=== PATIENT | female | born 1985 | race Two or more races ===

== ENCOUNTER 2017-11-04 11:44 | Emergency (ER) | payer OTHER ==
[~2017-11-04] VITALS: Ht 175.3 cm; Wt 82.7 kg
[~2017-11-04 11:44] MED LIST: ACET325T26 PO; CIPR500T3 PO; DIPH25CA61 PO; ETON68IM3 IMPLANT; HYDR-882 PO; LEVO120C PO; PANT40TA5 PO; PROM25SU34 RC
[2017-11-04 12:29] LABS: MICROSCOPIC NOT IND
[2017-11-04 12:33] LABS: CULTURE INDICATED? NO
[2017-11-04] MEDS ORDERED: DIPHENHYDRAMINE 50 MG/ML, 1ML IVPush ONE (13:00)
[2017-11-04] MEDS ORDERED: SODIUM CHLORIDE 0.9% 1,000ML IVBOLUS ONE (13:00)
[2017-11-04] MEDS ORDERED: METOCLOPRAMIDE 5 MG/ML, 2ML IVPush ONE (13:00)
[2017-11-04] MEDS ORDERED: SODIUM CHLORIDE FLUSH 10ML SYR IVF ONE (13:00)
[2017-11-04 13:07] LABS: BASOPHILS # (AUTO) 0.01 x10^3/uL (0-0.1); BASOPHILS % (AUTO) 0 % (0-1); EOSINOPHILS # (AUTO) 0.01 x10^3/uL (0-0.4); EOSINOPHILS % (AUTO) 0 % (1-7); LYMPHOCYTES # (AUTO) 1.84 x10^3/uL (1-3.4); LYMPHOCYTES % (AUTO) 28 % (22-44); MD NO; MEAN CORPUSCULAR HEMOGLOBIN 29.5 pg (27.0-34.8); MEAN CORPUSCULAR HGB CONC 33.8 g/dL (32.4-35.8); MEAN CORPUSCULAR VOLUME 87.1 fL (80-100); MEAN PLATELET VOLUME 8.8 fL (7.4-10.4); MONOCYTES # (AUTO) 0.41 x10^3/uL (0.2-0.8); MONOCYTES % (AUTO) 6 % (2-9); NEUTROPHILS # (AUTO) 4.23 x10^3/uL (1.8-6.8); NEUTROPHILS % (AUTO) 65 % (42-75); PLATELET COUNT 235 x10^3/uL (130-400); RED BLOOD COUNT 4.17 x10^6/uL (3.82-5.3); RED CELL DISTRIBUTION WIDTH 13.4 % (9.6-15.2)
[2017-11-04] MEDS ORDERED: DIPHENHYDRAMINE 50 MG/ML, 1ML ONE (13:11)
[2017-11-04] MEDS ORDERED: METOCLOPRAMIDE 5 MG/ML, 2ML ONE (13:11)
[2017-11-04 13:20] LABS: ALANINE AMINOTRANSFERASE 17 U/L (12-78); ALBUMIN 3.5 g/dL (3.4-5.0); ANION GAP 7 mmol/L (5-15); CALCIUM 8.5 mg/dL (8.5-10.1); CHLORIDE 109 mmol/L (98-107); CREATININE 0.59 mg/dL (0.55-1.02)
[2017-11-04 13:22] LABS: ALKALINE PHOSPHATASE 65 U/L (45-117); BILIRUBIN,TOTAL 0.2 mg/dL (0.2-1.0); TOTAL PROTEIN 6.7 g/dL (6.4-8.2)
[2017-11-04 13:41] VITALS: BP 103/61
== END 2017-11-04 13:59 | disposition home or self-care (01) ==
LOC: ED 13:20
DX: O26.891 Other specified pregnancy related conditions, first trimester (principal); O99.351 Diseases of the nervous system complicating pregnancy, first trimester; R55 Syncope and collapse; R11.0 Nausea; Z3A.01 Less than 8 weeks gestation of pregnancy
CPT/HCPCS: 36415; 80053; 81003; 83690; 85025; 93005; 96361; 96374; 96375; 99285; J1200; J2765; J7030

== ENCOUNTER 2018-01-19 11:03 | Emergency (ER) | payer OTHER ==
[~2018-01-19] VITALS: Ht 175.3 cm; Wt 87.0 kg
[2018-01-19 11:08] VITALS: BP 115/73
[2018-01-19 12:30] LABS: BASOPHILS # (AUTO) 0.02 x10^3/uL (0-0.1); BASOPHILS % (AUTO) 0 % (0-1); EOSINOPHILS # (AUTO) 0.01 x10^3/uL (0-0.4); EOSINOPHILS % (AUTO) 0 % (1-7); LYMPHOCYTES # (AUTO) 1.72 x10^3/uL (1-3.4); LYMPHOCYTES % (AUTO) 23 % (22-44); MD NO; MEAN CORPUSCULAR HEMOGLOBIN 30.3 pg (27.0-34.8); MEAN CORPUSCULAR HGB CONC 34.4 g/dL (32.4-35.8); MEAN CORPUSCULAR VOLUME 88.1 fL (80-100); MEAN PLATELET VOLUME 8.2 fL (7.4-10.4); MONOCYTES # (AUTO) 0.39 x10^3/uL (0.2-0.8); MONOCYTES % (AUTO) 5 % (2-9); NEUTROPHILS # (AUTO) 5.24 x10^3/uL (1.8-6.8); NEUTROPHILS % (AUTO) 71 % (42-75); PLATELET COUNT 237 x10^3/uL (130-400)
[2018-01-19 12:40] LABS: ALANINE AMINOTRANSFERASE 17 U/L (12-78); ALBUMIN 3.2 g/dL (3.4-5.0); ANION GAP 8 mmol/L (5-15); CALCIUM 9.5 mg/dL (8.5-10.1); CHLORIDE 108 mmol/L (98-107); CREATININE 0.48 mg/dL (0.55-1.02)
[2018-01-19 12:42] LABS: ALKALINE PHOSPHATASE 80 U/L (45-117); BILIRUBIN,TOTAL 0.2 mg/dL (0.2-1.0); TOTAL PROTEIN 7.3 g/dL (6.4-8.2)
[2018-01-19 12:52] LABS: CULTURE INDICATED? YES; MICROSCOPIC INDICATED
== END 2018-01-19 14:10 | disposition home or self-care (01) ==
LOC: ED 14:00
DX: O26.892 Other specified pregnancy related conditions, second trimester (principal); R55 Syncope and collapse; R20.2 Paresthesia of skin; Z3A.18 18 weeks gestation of pregnancy
CPT/HCPCS: 36415; 80053; 81001; 85025; 87086; 93005; 99285

== ENCOUNTER → 2018-03-05 | Outpatient (CLI) | payer OTHER ==
[~2018-03-05] VITALS: Ht 175.3 cm; Wt 89.9 kg
[2018-03-05 17:10] VITALS: BP 109/64
[2018-03-05 17:17] LABS: MICROSCOPIC AUTO
== END | disposition home or self-care (01) ==
LOC: LDOP 16:28
PROVIDERS: ATTEND Obstetrics & Gynecology
DX: O26.892 Other specified pregnancy related conditions, second trimester (principal); M54.9 Dorsalgia, unspecified; Z3A.24 24 weeks gestation of pregnancy
CPT/HCPCS: 59025; 81001; 87086; 99201; G0463

== ENCOUNTER 2018-03-16 09:18 | Outpatient (CLI) | payer OTHER ==
[2018-03-16] MEDS ORDERED: PREN1TAB10 PO (10:52)
[2018-03-16] MEDS ORDERED: CALC1TAB84 PO (10:56)
== END 2018-03-16 11:11 | disposition home or self-care (01) ==
LOC: LDOP 09:18
PROVIDERS: ATTEND Obstetrics & Gynecology
DX: O26.899 Other specified pregnancy related conditions, unspecified trimester (principal); R42 Dizziness and giddiness; H57.10 Ocular pain, unspecified eye; Z3A.00 Weeks of gestation of pregnancy not specified
CPT/HCPCS: 59025; 99211; G0463

== ENCOUNTER 2018-03-16 11:14 | Emergency (ER) | payer OTHER ==
[~2018-03-16] VITALS: Ht 175.3 cm; Wt 93.9 kg
[~2018-03-16 11:14] MED LIST changes: +CALC1TAB84 PO; +PREN1TAB10 PO
[2018-03-16 11:55] LABS: BASOPHILS # (AUTO) 0.01 x10^3/uL (0-0.1); BASOPHILS % (AUTO) 0 % (0-1); EOSINOPHILS # (AUTO) 0.03 x10^3/uL (0-0.4); EOSINOPHILS % (AUTO) 0 % (1-7); LYMPHOCYTES % (AUTO) 18 % (22-44); MD NO; MEAN CORPUSCULAR HEMOGLOBIN 29.9 pg (27.0-34.8); MEAN PLATELET VOLUME 7.7 fL (7.4-10.4); MONOCYTES # (AUTO) 0.43 x10^3/uL (0.2-0.8); MONOCYTES % (AUTO) 5 % (2-9); NEUTROPHILS # (AUTO) 6.62 x10^3/uL (1.8-6.8); NEUTROPHILS % (AUTO) 76 % (42-75); PLATELET COUNT 225 x10^3/uL (130-400); RED BLOOD COUNT 4.27 x10^6/uL (3.82-5.3)
[2018-03-16 12:04] LABS: ALANINE AMINOTRANSFERASE 18 U/L (12-78); ALBUMIN 3.2 g/dL (3.4-5.0); ANION GAP 8 mmol/L (5-15); CALCIUM 8.5 mg/dL (8.5-10.1); CHLORIDE 107 mmol/L (98-107); CREATININE 0.47 mg/dL (0.55-1.02)
[2018-03-16 12:06] LABS: MICROSCOPIC NOT IND
[2018-03-16 12:07] LABS: ALKALINE PHOSPHATASE 85 U/L (45-117); BILIRUBIN,TOTAL 0.2 mg/dL (0.2-1.0); TOTAL PROTEIN 7.3 g/dL (6.4-8.2)
[2018-03-16 12:23] LABS: CULTURE INDICATED? NO
[2018-03-16 12:28] VITALS: BP 110/75
== END 2018-03-16 13:48 | disposition home or self-care (01) ==
LOC: ED 12:20
DX: O26.891 Other specified pregnancy related conditions, first trimester (principal); J01.90 Acute sinusitis, unspecified; M79.7 Fibromyalgia; Z3A.26 26 weeks gestation of pregnancy
CPT/HCPCS: 36415; 70551; 80053; 81003; 85025; 99285

== ENCOUNTER 2018-04-13 13:59 | Outpatient (CLI) | payer OTHER ==
[~2018-04-13] VITALS: Ht 175.3 cm; Wt 95.4 kg
[2018-04-13 14:10] VITALS: BP 95/55
[2018-04-13 14:24] LABS: CULTURE INDICATED? NO; MICROSCOPIC NOT IND
[2018-04-13] MEDS ORDERED: D5%-LACTATED RINGERS 1,000 ML IV SCH (15:00)
== END 2018-04-13 15:45 | disposition home or self-care (01) ==
LOC: LDOP 13:59
PROVIDERS: ATTEND Obstetrics & Gynecology
DX: O26.893 Other specified pregnancy related conditions, third trimester (principal); R10.9 Unspecified abdominal pain; R11.0 Nausea; Z3A.30 30 weeks gestation of pregnancy
CPT/HCPCS: 59025; 81003; 96360; 99211; J7121; G0463

== ENCOUNTER 2018-05-07 09:09 | Outpatient (CLI) | payer OTHER ==
[~2018-05-07] VITALS: Ht 175.3 cm; Wt 95.9 kg
[2018-05-07 10:01] LABS: MICROSCOPIC INDICATED
[2018-05-07 10:33] VITALS: BP 112/65
== END 2018-05-07 11:48 | disposition home or self-care (01) ==
LOC: LDOP 09:09
PROVIDERS: ATTEND Obstetrics & Gynecology
DX: O26.893 Other specified pregnancy related conditions, third trimester (principal); Z3A.33 33 weeks gestation of pregnancy
CPT/HCPCS: 59025; 81001; 84112; 87086; 99211; G0463

== ENCOUNTER 2018-06-04 21:52 | Outpatient (CLI) | payer OTHER ==
[~2018-06-04] VITALS: Ht 175.3 cm; Wt 100.0 kg
[2018-06-04 21:55] VITALS: BP 129/75
[2018-06-04] MEDS ORDERED: MEPERIDINE/PF 50 MG/ML ONE (22:16)
[2018-06-04] MEDS ORDERED: PROMETHAZINE 25 MG/ML, 1ML ONE (22:16)
[2018-06-04] MEDS ORDERED: PROMETHAZINE 25 MG/ML, 1ML IM PRN (22:30)
[2018-06-04] MEDS ORDERED: MEPERIDINE/PF 50 MG/ML IVPush PRN (22:30)
== END 2018-06-04 22:30 | disposition home or self-care (01) ==
LOC: LDOP 21:52
PROVIDERS: ATTEND Obstetrics & Gynecology
DX: O26.893 Other specified pregnancy related conditions, third trimester (principal); M54.9 Dorsalgia, unspecified; Z3A.37 37 weeks gestation of pregnancy
CPT/HCPCS: 59025; 96372; 99211; J2175; J2550; G0463

== ENCOUNTER 2018-06-21 07:42 | Inpatient (IN) | payer OTHER ==
[~2018-06-21] VITALS: Ht 175.3 cm; Wt 102.3 kg
[2018-06-24] MEDS ORDERED: D5%-LACTATED RINGERS 1,000 ML IV SCH (20:32)
[2018-06-24] MEDS ORDERED: OXYTOCIN 30U/ 0.9% NaCL 500ML 500 ML IV PRN (20:32)
[2018-06-24] MEDS ORDERED: OXYTOCIN 30U/ 0.9% NaCL 500ML 500 ML IV ONE (20:32)
[2018-06-24 20:44] VITALS: BP 133/83
[2018-06-24] MEDS ORDERED: PLEASE ENTER HEIGHT AND WEIGHT MC SCH (20:46)
[2018-06-24] MEDS ORDERED: NEWBORN KIT ONE (20:52)
[2018-06-24 20:55] LABS: BASOPHILS # (AUTO) 0.02 x10^3/uL (0-0.1); BASOPHILS % (AUTO) 0 % (0-1); EOSINOPHILS # (AUTO) 0.02 x10^3/uL (0-0.4); EOSINOPHILS % (AUTO) 0 % (1-7); LYMPHOCYTES # (AUTO) 1.82 x10^3/uL (1-3.4); LYMPHOCYTES % (AUTO) 24 % (22-44); MD NO; MEAN CORPUSCULAR HEMOGLOBIN 27.1 pg (27.0-34.8); MEAN CORPUSCULAR HGB CONC 33.5 g/dL (32.4-35.8); MEAN CORPUSCULAR VOLUME 80.9 fL (80-100); MEAN PLATELET VOLUME 9.1 fL (7.4-10.4); MONOCYTES # (AUTO) 0.61 x10^3/uL (0.2-0.8); MONOCYTES % (AUTO) 8 % (2-9); NEUTROPHILS # (AUTO) 5.16 x10^3/uL (1.8-6.8); NEUTROPHILS % (AUTO) 68 % (42-75); PLATELET COUNT 227 x10^3/uL (130-400); RED BLOOD COUNT 3.96 x10^6/uL (3.82-5.3); RED CELL DISTRIBUTION WIDTH 13.3 % (9.6-15.2)
[2018-06-24] MEDS ORDERED: MISOPROSTOL 25 MCG TABLET ONE ×2 (20:56)
[2018-06-24] MEDS ORDERED: FENTANYL PF 100 MCG/2ML IV PRN (21:00)
[2018-06-24] MEDS ORDERED: SODIUM CITRATE/CITRIC ACID 30 ML UDC PO PRN (21:00)
[2018-06-24] MEDS ORDERED: METOCLOPRAMIDE 5 MG/ML, 2ML IVPush PRN (21:00)
[2018-06-24] MEDS ORDERED: ONDANSETRON 2MG/ML, 2ML IVPush PRN (21:00)
[2018-06-24] MEDS ORDERED: VANCOMYCIN PMX 1GM/200ML 200 ML IVPB SCH (21:00)
[2018-06-24] MEDS ORDERED: TERBUTALINE 1 MG/ML, 1ML IVPush PRN ×2 (21:00)
[2018-06-24] MEDS ORDERED: CALCIUM CARBONATE 500 MG TAB.CHEW PO PRN (21:00)
[2018-06-24] MEDS ORDERED: FENTANYL PF 100 MCG/2ML IVPush PRN (21:00)
[2018-06-24] MEDS ORDERED: ALUMINUM/MAG/SIMETHICONE 30 ML UDC PO PRN (21:00)
[2018-06-24] MEDS ORDERED: TERBUTALINE 1 MG/ML, 1ML SQ PRN (21:00)
[2018-06-24] MEDS: MISOPROSTOL 25 MCG TABLET VG PRN (21:10)
[2018-06-24] MEDS ORDERED: DIPHENHYDRAMINE 50 MG/ML, 1ML ONE (22:43)
[2018-06-24] MEDS ORDERED: DIPHENHYDRAMINE 50 MG/ML, 1ML IVPush ONE (23:00)
[2018-06-25] MEDS ORDERED: MISOPROSTOL 25 MCG TABLET ONE (03:48)
[2018-06-25] MEDS: MISOPROSTOL 25 MCG TABLET VG PRN (04:10)
[2018-06-25] MEDS ORDERED: ACETAMINOPHEN 325 MG TABLET ONE ×4 (05:03→20:22)
[2018-06-25] MEDS: ACETAMINOPHEN 325 MG TABLET PO PRN ×4 (05:05→20:25)
[2018-06-25] MEDS ORDERED: FENTANYL/BUPIV./NS/PF 250 ML EPIDCONT SCH (06:49)
[2018-06-25] MEDS ORDERED: FENTANYL PF 500 MCG, BUPIVACAINE/PF 0.5%, 30ML 62.5 ML in SODIUM CHLORIDE 0.9% 177.5 ML EPIDCONT SCH (07:00)
[2018-06-25] MEDS: LACTATED RINGERS 1,000 ML IV SCH ×2 (09:41→14:17)
[2018-06-25] MEDS ORDERED: OXYTOCIN 30U/ 0.9% NaCL 500ML 500 ML ONE (10:17)
[2018-06-25] MEDS ORDERED: FENTANYL PF 100 MCG/2ML ONE ×2 (12:10→13:46)
[2018-06-25] MEDS ORDERED: CEFAZOLIN PMX 2GM/50ML 50 ML IV SCH (13:30)
[2018-06-25] MEDS: CEFAZOLIN 2,000 MG in SODIUM CHLORIDE 0.9% 50 ML IVPB SCH ×2 (13:41→20:41)
[2018-06-25] MEDS ORDERED: BUPIVACAINE 0.25% ONE (13:47)
[2018-06-26] MEDS ORDERED: METHYLERGONOVINE 0.2 MG/ML IM PRN (00:30)
[2018-06-26] MEDS ORDERED: MAGNESIUM HYDROXIDE 8%, 30ML UDC PO PRN (00:30)
[2018-06-26] MEDS ORDERED: OXYcodone/APAP 5/325MG TABLET PO PRN (00:30)
[2018-06-26] MEDS ORDERED: METOCLOPRAMIDE 5 MG/ML, 2ML IV PRN (00:30)
[2018-06-26] MEDS ORDERED: CARBOPROST TROMETHAMINE 250 MCG/ML, 1ML IM PRN (00:30)
[2018-06-26] MEDS ORDERED: DIPH,PERTUSS(ACELL),TET VAC/PF NC IM-VACC PRN (00:30)
[2018-06-26] MEDS ORDERED: MISOPROSTOL 200 MCG TABLET PR PRN (00:30)
[2018-06-26] MEDS ORDERED: ACETAMINOPHEN 325 MG TABLET PO PRN ×3 (00:30)
[2018-06-26] MEDS ORDERED: CALCIUM CARBONATE 500 MG TAB.CHEW PO PRN (00:30)
[2018-06-26] MEDS ORDERED: RHOGAM FROM BLOOD BANK 1 NOTE EA IM/IV ONE (00:30)
[2018-06-26] MEDS ORDERED: BISACODYL 10 MG SUPP PR PRN (00:30)
[2018-06-26] MEDS ORDERED: MEASLES,MUMPS&RUBELLA VACC/PF 0.5 ML SQ PRN (00:30)
[2018-06-26] MEDS ORDERED: ONDANSETRON 2MG/ML, 2ML IV PRN (00:30)
[2018-06-26] MEDS: OXYTOCIN 30U/ 0.9% NaCL 500ML 500 ML IV SCH ×3 (00:30→20:30)
[2018-06-26] MEDS ORDERED: GLYCERIN ADULT SUPP PR PRN (00:30)
[2018-06-26] MEDS ORDERED: ACETAMINOPHEN 325 MG TABLET ONE (03:16)
[2018-06-26] MEDS: ACETAMINOPHEN 325 MG TABLET PO PRN ×2 (03:18→06:25)
[2018-06-26] MEDS ORDERED: OXYTOCIN 30U/ 0.9% NaCL 500ML 500 ML ONE (03:57)
[2018-06-26 04:50] VITALS: BP 124/80
[2018-06-26 07:20] VITALS: BP 121/74
[2018-06-26] MEDS: DOCUSATE 100 MG CAPSULE PO PRN ×2 (08:08→21:01)
[2018-06-26] MEDS: IBUPROFEN 600 MG TABLET PO PRN ×2 (08:30→22:52)
[2018-06-26] MEDS: PRENATAL VIT/IRON/FA 1 EACH TABLET PO SCH (08:36)
[2018-06-26 11:48] LABS: BASOPHILS # (AUTO) 0.02 x10^3/uL (0-0.1); BASOPHILS % (AUTO) 0 % (0-1); EOSINOPHILS # (AUTO) 0.04 x10^3/uL (0-0.4); EOSINOPHILS % (AUTO) 0 % (1-7); LYMPHOCYTES # (AUTO) 1.72 x10^3/uL (1-3.4); LYMPHOCYTES % (AUTO) 11 % (22-44); MD NO; MEAN CORPUSCULAR HEMOGLOBIN 28.1 pg (27.0-34.8); MEAN CORPUSCULAR VOLUME 82.8 fL (80-100); MEAN PLATELET VOLUME 9.9 fL (7.4-10.4); MONOCYTES # (AUTO) 0.88 x10^3/uL (0.2-0.8); MONOCYTES % (AUTO) 6 % (2-9); NEUTROPHILS % (AUTO) 83 % (42-75); PLATELET COUNT 246 x10^3/uL (130-400); RED BLOOD COUNT 3.76 x10^6/uL (3.82-5.3)
[2018-06-26 12:05] VITALS: BP 117/75
[2018-06-26] MEDS: OXYcodone/APAP 5/325MG TABLET PO PRN ×3 (12:52→21:01)
[2018-06-26 16:30] VITALS: BP 137/83
[2018-06-26 20:00] VITALS: BP 113/79
[2018-06-27] MEDS: OXYcodone/APAP 5/325MG TABLET PO PRN ×4 (00:23→13:27)
[2018-06-27 02:00] VITALS: BP 103/75
[2018-06-27] MEDS: OXYTOCIN 30U/ 0.9% NaCL 500ML 500 ML IV SCH (06:30)
[2018-06-27 07:00] VITALS: BP 101/65
[2018-06-27] MEDS: PRENATAL VIT/IRON/FA 1 EACH TABLET PO SCH (09:00)
[2018-06-27] MEDS: DOCUSATE 100 MG CAPSULE PO PRN (09:16)
[2018-06-27] MEDS ORDERED: IBUP-1222 PO (10:30)
[2018-06-27] MEDS ORDERED: OXYC-302 PO (10:30)
== END 2018-06-27 15:27 | disposition home or self-care (01) | DRG 775 ==
LOC: LDIP 06-24 20:29 → 2NW 06-26 04:17
PROVIDERS: ADMIT Obstetrics & Gynecology; ATTEND Obstetrics & Gynecology
PROC: 10E0XZZ Delivery of Products of Conception, External Approach (ICD-10-PCS; principal; 2018-06-26)
PROC: 0KQM0ZZ Repair Perineum Muscle, Open Approach (ICD-10-PCS; 2018-06-26)
PROC: 0TQDXZZ Repair Urethra, External Approach (ICD-10-PCS; 2018-06-26)
PROC: 30233S1 Transfusion of Nonautologous Globulin into Peripheral Vein, Percutaneous Approach (ICD-10-PCS; 2018-06-26)
DX: O48.0 Post-term pregnancy (principal); O99.354 Diseases of the nervous system complicating childbirth; O71.5 Other obstetric injury to pelvic organs; O69.81X0 Labor and delivery complicated by cord around neck, without compression, not applicable or unspecified; O99.824 Streptococcus B carrier state complicating childbirth; O99.62 Diseases of the digestive system complicating childbirth; K21.9 Gastro-esophageal reflux disease without esophagitis; O43.123 Velamentous insertion of umbilical cord, third trimester; M79.7 Fibromyalgia; K58.9 Irritable bowel syndrome, unspecified; F32.9 Major depressive disorder, single episode, unspecified; G43.909 Migraine, unspecified, not intractable, without status migrainosus; O99.344 Other mental disorders complicating childbirth; Z16.29 Resistance to other single specified antibiotic; O70.1 Second degree perineal laceration during delivery; Z3A.40 40 weeks gestation of pregnancy; Z88.0 Allergy status to penicillin; Z37.0 Single live birth; Z90.49 Acquired absence of other specified parts of digestive tract; Z91.040 Latex allergy status; Z91.011 Allergy to milk products; Z91.018 Allergy to other foods
CPT/HCPCS: 36415; J2790; 82803; 85025; 85461; 86850; 86900; G0378; J0690; J3010; J3370; J3490; J1200; J2590; J7050; J7120

== ENCOUNTER 2019-04-02 13:28 | Emergency (ER) | payer OTHER ==
[~2019-04-02] VITALS: Ht 175.3 cm; Wt 88.0 kg
[~2019-04-02 13:28] MED LIST changes: +HYDR-3653 PO; -HYDR-882 PO; +IBUP-1222 PO; +OXYC-302 PO
[2019-04-02 13:29] VITALS: BP 114/86
--- NOTE | 2019-04-02 13:37 | NUR ---
PT TO ROOM FROM LOBBY
--- NOTE | 2019-04-02 14:05 | NUR ---
RAD AT BEDSIDE
== END 2019-04-02 14:31 | disposition home or self-care (01) ==
LOC: ED 14:00
DX: S91.331A Puncture wound without foreign body, right foot, initial encounter (principal); L03.115 Cellulitis of right lower limb; W25.XXXA Contact with sharp glass, initial encounter; Y93.89 Activity, other specified; Y92.009 Unspecified place in unspecified non-institutional (private) residence as the place of occurrence of the external cause; Y99.8 Other external cause status
CPT/HCPCS: 99283

== ENCOUNTER 2019-05-20 11:42 | Emergency (ER) | payer OTHER ==
[~2019-05-20] VITALS: Ht 175.3 cm; Wt 83.4 kg
[2019-05-20 12:44] VITALS: BP 111/79
== END 2019-05-20 17:33 | disposition home or self-care (01) ==
LOC: ED 17:22
DX: E86.0 Dehydration (principal); R55 Syncope and collapse
CPT/HCPCS: 36415; 80048; 81003; 81025; 84703; 85025; 93005; 99284

== ENCOUNTER 2019-10-13 08:57 | Emergency (ER) | payer OTHER ==
[~2019-10-13] VITALS: Ht 175.3 cm; Wt 85.9 kg
--- NOTE | 2019-10-13 09:15 | NUR ---
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 pt states she felt similar to this last time she was (pt 16 months ). pt denies bleeding/cramping, lmp 09/19/19. pt denies injury/trauma, denies recent fevers. pt states she took home prenancy test this am with "faint line" (indicating positive). pt attached to all monitors, given warm blanket and call light. CHARISSE Steel at bedside for initial assessment.
[2019-10-13] MEDS ORDERED: MECLIZINE CHEWABLE 25 MG TAB PO ONE (09:30)
--- NOTE | 2019-10-13 09:32 | NUR ---
ORTHOSTATICS PERFORMED, BP 98/62 HR 85 LAYING FLAT; 101/69 HR 92 STANDING. MD ARREDONDO INFORMED.
[2019-10-13 09:53] LABS: MICROSCOPIC NOT IND
[2019-10-13 09:54] LABS: CULTURE INDICATED? NO
--- NOTE | 2019-10-13 10:00 | NUR ---
meclizine not in ed omnicell, ordered from pharmacy.
[2019-10-13 10:08] LABS: BASOPHILS # (AUTO) 0.01 x10^3/uL (0-0.1); BASOPHILS % (AUTO) 0 % (0-1); EOSINOPHILS # (AUTO) 0.01 x10^3/uL (0-0.4); EOSINOPHILS % (AUTO) 0 % (1-7); LYMPHOCYTES # (AUTO) 1.62 x10^3/uL (1-3.4); LYMPHOCYTES % (AUTO) 36 % (22-44); MD NO; MEAN CORPUSCULAR HEMOGLOBIN 28.5 pg (27.0-34.8); MEAN CORPUSCULAR HGB CONC 33.2 g/dL (32.4-35.8); MEAN CORPUSCULAR VOLUME 85.7 fL (80-100); MEAN PLATELET VOLUME 8.7 fL (7.4-10.4); MONOCYTES # (AUTO) 0.34 x10^3/uL (0.2-0.8); MONOCYTES % (AUTO) 8 % (2-9); NEUTROPHILS # (AUTO) 2.54 x10^3/uL (1.8-6.8); NEUTROPHILS % (AUTO) 56 % (42-75); PLATELET COUNT 240 x10^3/uL (130-400); RED BLOOD COUNT 4.68 x10^6/uL (3.82-5.3); RED CELL DISTRIBUTION WIDTH 13.3 % (9.6-15.2)
[2019-10-13 10:19] LABS: ALBUMIN 3.9 g/dL (3.4-5.0); ANION GAP 6 mmol/L (5-15); CALCIUM 8.4 mg/dL (8.5-10.1); CHLORIDE 108 mmol/L (98-107)
[2019-10-13 10:25] LABS: ALANINE AMINOTRANSFERASE 22 U/L (12-78); ALKALINE PHOSPHATASE 82 U/L (45-117); BILIRUBIN,TOTAL 0.6 mg/dL (0.2-1.0); CREATININE 0.73 mg/dL (0.55-1.02); TOTAL PROTEIN 6.9 g/dL (6.4-8.2)
[2019-10-13] MEDS ORDERED: ACETAMINOPHEN 500 MG TABLET ONE (10:27)
[2019-10-13 10:30] VITALS: BP 100/61
[2019-10-13] MEDS ORDERED: ACETAMINOPHEN 325 MG TABLET PO ONE (10:30)
[2019-10-13] MEDS ORDERED: DIPHENHYDRAMINE 25 MG CAPSULE ONE ×2 (10:46→10:51)
--- NOTE | 2019-10-13 10:50 | NUR ---
PT INITIALLY INFORMED STAFF SHE COULD TAKE MECLIZINE IT DOES NOT HAVE DAIRY, AFTER TAKING MECLIZINE PT REPORTS SHE IS FEELING ITCHY. RESPS EVEN AND UNLABORED, NO S/SX RESP DISTRESS. PT STATES AFTER SX ONSET SHE LOOKED UP MECLIZINE AND SOME MANUFACTERERS MAKE WITH DAIRY. MD ARREDONDO INFORMED. BENADRYL ORDERED AND ADMINISTERED, PT TOLERATED WELL. PT STATES SHE DOES NOT NEED TO DRIVE TODAY.
[2019-10-13] MEDS ORDERED: DIPHENHYDRAMINE 25 MG CAPSULE PO ONE (11:00)
== END 2019-10-13 11:29 ==
LOC: ED 11:23
DX: R42 Dizziness and giddiness (principal); E86.0 Dehydration
CPT/HCPCS: 36415; 80053; 81003; 84703; 85025; 93005; 99284; Q0163

== ENCOUNTER 2020-05-08 11:04 | Emergency (ER) | payer OTHER ==
[~2020-05-08] VITALS: Ht 175.3 cm; Wt 90.7 kg
[2020-05-08] MEDS ORDERED: SODIUM CHLORIDE 0.9% 1,000 ML IV ONE (11:23)
[2020-05-08] MEDS ORDERED: SODIUM CHLORIDE FLUSH 10ML SYR IVF ONE (11:30)
[2020-05-08] MEDS ORDERED: SODIUM CHLORIDE 0.9% 1,000ML IVBOLUS ONE (11:30)
[2020-05-08 11:45] LABS: MICROSCOPIC NOT IND
[2020-05-08 11:51] LABS: BASOPHILS # (AUTO) 0.02 x10^3/uL (0-0.1); BASOPHILS % (AUTO) 0 % (0-1); EOSINOPHILS # (AUTO) 0.02 x10^3/uL (0-0.4); EOSINOPHILS % (AUTO) 0 % (1-7); LYMPHOCYTES # (AUTO) 1.71 x10^3/uL (1-3.4); LYMPHOCYTES % (AUTO) 22 % (22-44); MD NO; MEAN CORPUSCULAR HEMOGLOBIN 28.1 pg (27.0-34.8); MEAN CORPUSCULAR HGB CONC 32.4 g/dL (32.4-35.8); MEAN CORPUSCULAR VOLUME 86.7 fL (80-100); MEAN PLATELET VOLUME 8.8 fL (7.4-10.4); MONOCYTES # (AUTO) 0.47 x10^3/uL (0.2-0.8); MONOCYTES % (AUTO) 6 % (2-9); NEUTROPHILS # (AUTO) 5.45 x10^3/uL (1.8-6.8); NEUTROPHILS % (AUTO) 71 % (42-75); PLATELET COUNT 256 x10^3/uL (130-400); RED BLOOD COUNT 4.98 x10^6/uL (3.82-5.3); RED CELL DISTRIBUTION WIDTH 13.2 % (9.6-15.2)
--- NOTE | 2020-05-08 11:51 | NUR ---
PT CAME IN [place] NAUSEA, HEARTBURN, INSOMNIA X 1 WEEK. PT STATES SHE HASNT VOMITTED OR HAD ANY BLEEDING FROM HER VAGINA. STATES SHE IS 8 WEEKS . THIS IS HER 4TH WITH 1 TO TERM AND 2 MISCARRIAGE. PT IS RESTING IN [facility]. IV FLUIDS INFUSING. CONNECTED TO MONITORING EQUIPMENT.
[2020-05-08 11:57] LABS: ANION GAP 5 mmol/L (5-15); CHLORIDE 108 mmol/L (98-107)
[2020-05-08 12:02] LABS: ALANINE AMINOTRANSFERASE 21 U/L (12-78); ALKALINE PHOSPHATASE 98 U/L (45-117); BILIRUBIN,TOTAL 0.3 mg/dL (0.2-1.0); CREATININE 0.65 mg/dL (0.55-1.02); TOTAL PROTEIN 7.8 g/dL (6.4-8.2)
[2020-05-08 12:16] VITALS: BP 105/67
--- NOTE | 2020-05-08 12:36 | NUR ---
PT AMBUALTED WITH STEADY GATE TO BATHROOM
--- NOTE | 2020-05-08 13:58 | NUR ---
PT WAS UPSET HER IRON LEVELS DIDNT GET CHECKED IN HER BLOODWORK. "EARNEST BEEN HERE FOR 2 HOURS. THIS IS RIDICULOUS. YOU GUYS DIDNT HELP ME AT ALL." PT THEN LEFT WITHOUT HER DC PAPERWORK.
== END 2020-05-08 14:00 | disposition left against medical advice (07) ==
LOC: ED 13:54
DX: O26.891 Other specified pregnancy related conditions, first trimester (principal); R42 Dizziness and giddiness; R55 Syncope and collapse; M79.7 Fibromyalgia; Z3A.01 Less than 8 weeks gestation of pregnancy
CPT/HCPCS: 36415; 80053; 81003; 82728; 83540; 83550; 85025; 93005; 96360; 96361; 99284; J7030

== ENCOUNTER 2020-11-10 14:50 | Outpatient (CLI) | payer OTHER ==
[~2020-11-10] VITALS: Ht 175.3 cm; Wt 102.0 kg
[2020-11-10 14:45] VITALS: BP 103/66
[~2020-11-10 14:50] MED LIST changes: +CALC-694 PO; -CALC1TAB84 PO; -CIPR500T3 PO; +CIPR500T4 PO; -OXYC-302 PO; +OXYC1TAB14 PO; -PANT40TA5 PO; +PANT40TA6 PO
[2020-11-10 15:38] LABS: BASOPHILS % (AUTO) 0 % (0-1); EOSINOPHILS % (AUTO) 0 % (1-7); LYMPHOCYTES % (AUTO) 17 % (22-44); MEAN CORPUSCULAR HGB CONC 34.1 g/dL (32.4-35.8); MEAN PLATELET VOLUME 8.9 fL (7.4-10.4); MONOCYTES % (AUTO) 8 % (2-9); NEUTROPHILS % (AUTO) 75 % (42-75); PLATELET COUNT 190 x10^3/uL (130-400); RED BLOOD COUNT 3.78 x10^6/uL (3.82-5.3); RED CELL DISTRIBUTION WIDTH 13.6 % (9.6-15.2)
[2020-11-10 15:39] LABS: MD NO
[2020-11-10 15:44] LABS: MICROSCOPIC INDICATED
[2020-11-10 15:46] LABS: ALBUMIN 2.5 g/dL (3.4-5.0); ANION GAP 9 mmol/L (5-15); CALCIUM 8.5 mg/dL (8.5-10.1); CHLORIDE 111 mmol/L (98-107)
[2020-11-10 15:50] LABS: ALANINE AMINOTRANSFERASE 13 U/L (12-78); ALKALINE PHOSPHATASE 133 U/L (45-117); BILIRUBIN,TOTAL 0.2 mg/dL (0.2-1.0); CREATININE 0.54 mg/dL (0.55-1.02); TOTAL PROTEIN 6.4 g/dL (6.4-8.2)
[2020-11-10 16:06] LABS: CREATININE,URINE RANDOM < 13.00 mg/dL; PROTEIN/CREATININE RATIO,URINE < 385 (0-200); TOTAL PROTEIN,URINE RANDOM < 5 mg/dL (0-12)
[2020-11-10 16:07] LABS: AMPHETAMINE SCREEN, URINE Negative (Negative); BARBITURATE SCREEN, URINE Negative (Negative); BENZODIAZEPINE SCREEN, URINE Negative (Negative); CANNABINOID SCREEN, URINE Negative (Negative); COCAINE SCREEN, URINE Negative (Negative); METHADONE SCREEN, URINE Negative (Negative); OPIATE SCREEN, URINE Negative (Negative)
== END 2020-11-10 17:20 | disposition home or self-care (01) ==
LOC: LDOP 14:50
PROVIDERS: ATTEND Obstetrics & Gynecology
DX: O26.893 Other specified pregnancy related conditions, third trimester (principal); R42 Dizziness and giddiness; Z3A.33 33 weeks gestation of pregnancy
CPT/HCPCS: 36415; 59025; 80053; 80307; 81001; 82570; 84156; 84550; 85025

== ENCOUNTER 2020-12-18 21:00 | Outpatient (CLI) | payer OTHER ==
[~2020-12-18] VITALS: Ht 175.3 cm; Wt 106.1 kg
== END 2020-12-18 22:14 | disposition home or self-care (01) ==
LOC: LDOP 21:00
PROVIDERS: ATTEND Obstetrics & Gynecology
DX: O36.8130 Decreased fetal movements, third trimester, not applicable or unspecified (principal); Z3A.39 39 weeks gestation of pregnancy
CPT/HCPCS: 59025; 76815

== ENCOUNTER 2020-12-20 12:24 | Inpatient (IN) | payer OTHER ==
[~2020-12-20] VITALS: Ht 175.3 cm; Wt 106.0 kg
[2020-12-20 22:10] VITALS: BP 123/80
[2020-12-20] MEDS ORDERED: MISOPROSTOL 200 MCG TABLET ONE (22:22)
[2020-12-20] MEDS ORDERED: LIDOCAINE 1%, 20ML ONE (22:22)
[2020-12-20] MEDS ORDERED: NEWBORN KIT ONE (22:22)
[2020-12-20] MEDS ORDERED: OXYTOCIN 30U/ 0.9% NaCL 500ML 500 ML ONE (22:23)
[2020-12-20] MEDS: D5%-LACTATED RINGERS 1,000 ML IV SCH (22:30)
[2020-12-20] MEDS ORDERED: OXYTOCIN 30U/ 0.9% NaCL 500ML 500 ML IV ONE (22:30)
[2020-12-20] MEDS ORDERED: TERBUTALINE 1 MG/ML, 1ML IVPush PRN (22:30)
[2020-12-20] MEDS ORDERED: ONDANSETRON 2MG/ML, 2ML IVPush PRN (22:30)
[2020-12-20] MEDS ORDERED: PLEASE ENTER HEIGHT AND WEIGHT MC SCH (22:30)
[2020-12-20] MEDS ORDERED: FENTANYL PF 100 MCG/2ML IVPush PRN (22:30)
[2020-12-20] MEDS ORDERED: CALCIUM CARBONATE 500 MG TAB.CHEW PO PRN (22:30)
[2020-12-20] MEDS ORDERED: TERBUTALINE 1 MG/ML, 1ML SQ PRN (22:30)
[2020-12-20] MEDS ORDERED: OXYTOCIN 30U/ 0.9% NaCL 500ML 500 ML IV PRN (22:30)
[2020-12-20] MEDS ORDERED: FENTANYL PF 100 MCG/2ML IV PRN (22:30)
[2020-12-20 22:44] LABS: BASOPHILS % (AUTO) 0 % (0-1); EOSINOPHILS % (AUTO) 1 % (1-7); LYMPHOCYTES % (AUTO) 18 % (22-44); MEAN CORPUSCULAR HEMOGLOBIN 28.5 pg (27.0-34.8); MEAN CORPUSCULAR HGB CONC 33.7 g/dL (32.4-35.8); MEAN PLATELET VOLUME 8.9 fL (7.4-10.4); MONOCYTES % (AUTO) 6 % (2-9); NEUTROPHILS % (AUTO) 75 % (42-75); PLATELET COUNT 203 x10^3/uL (130-400); RED BLOOD COUNT 3.94 x10^6/uL (3.82-5.3); RED CELL DISTRIBUTION WIDTH 14.4 % (9.6-15.2)
[2020-12-20 22:45] LABS: MD NO
[2020-12-20] MEDS ORDERED: MISOPROSTOL 25 MCG TABLET ONE (22:56)
[2020-12-20] MEDS: MISOPROSTOL 25 MCG TABLET VG PRN (23:03)
[2020-12-21] MEDS: MISOPROSTOL 25 MCG TABLET VG PRN ×2 (04:35→08:24)
[2020-12-21] MEDS: D5%-LACTATED RINGERS 1,000 ML IV SCH ×3 (06:30→22:30)
[2020-12-21] MEDS ORDERED: FENTANYL/BUPIV./NS/PF 250 ML EPIDCONT ONE (11:33)
[2020-12-21] MEDS ORDERED: BUPIVACAINE 0.25% ONE (11:33)
[2020-12-21] MEDS: LACTATED RINGERS 1,000 ML IV SCH ×5 (12:10→22:30)
[2020-12-21] MEDS ORDERED: DIPHENHYDRAMINE 50 MG/ML, 1ML ONE (17:46)
[2020-12-21] MEDS ORDERED: DIPHENHYDRAMINE 50 MG/ML, 1ML IVPush ONE (18:00)
[2020-12-21] MEDS ORDERED: LACTATED RINGERS 1,000 ML IVBOLUS PRN (19:30)
[2020-12-21] MEDS: FENTANYL/BUPIV./NS/PF 250 ML EPIDCONT SCH (19:30)
[2020-12-21] MEDS ORDERED: EPHEDRINE 50 MG/ML, 1ML IVPush PRN (19:30)
[2020-12-21] MEDS ORDERED: RHOGAM FROM BLOOD BANK 1 NOTE EA IM/IV ONE (21:30)
[2020-12-21] MEDS ORDERED: BISACODYL 10 MG SUPP PR PRN (21:30)
[2020-12-21] MEDS ORDERED: GLYCERIN ADULT SUPP PR PRN (21:30)
[2020-12-21] MEDS ORDERED: CALCIUM CARBONATE 500 MG TAB.CHEW PO PRN (21:30)
[2020-12-21] MEDS ORDERED: ACETAMINOPHEN 325 MG TABLET PO PRN (21:30)
[2020-12-21] MEDS ORDERED: METOCLOPRAMIDE 5 MG/ML, 2ML IV PRN (21:30)
[2020-12-21] MEDS ORDERED: DIPH,PERTUSS(ACELL),TET VAC/PF NC IM-VACC PRN (21:30)
[2020-12-21] MEDS ORDERED: SIMETHICONE 80 MG CHEW TAB PO PRN (21:30)
[2020-12-21] MEDS ORDERED: METHYLERGONOVINE 0.2 MG/ML IM PRN (21:30)
[2020-12-21] MEDS ORDERED: OXYcodone/APAP 5/325MG TABLET PO PRN ×2 (21:30)
[2020-12-21] MEDS ORDERED: MAGNESIUM HYDROXIDE 8%, 30ML UDC PO PRN (21:30)
[2020-12-21] MEDS ORDERED: MISOPROSTOL 200 MCG TABLET PR PRN (21:30)
[2020-12-21] MEDS ORDERED: MEASLES,MUMPS&RUBELLA VACC/PF 0.5 ML SQ-VACC PRN (21:30)
[2020-12-21] MEDS ORDERED: ONDANSETRON 2MG/ML, 2ML IV PRN (21:30)
[2020-12-21] MEDS ORDERED: CARBOPROST TROMETHAMINE 250 MCG/ML, 1ML IM PRN (21:30)
[2020-12-21] MEDS: OXYTOCIN 30U/ 0.9% NaCL 500ML 500 ML IV SCH (21:30)
[2020-12-21 23:10] VITALS: BP 113/76
[2020-12-21] MEDS: ACETAMINOPHEN 325 MG TABLET PO PRN (23:48)
[2020-12-21] MEDS: DOCUSATE 100 MG CAPSULE PO PRN (23:48)
[2020-12-21] MEDS: IBUPROFEN 600 MG TABLET PO PRN (23:48)
[2020-12-22] MEDS ORDERED: DIPHENHYDRAMINE 50 MG/ML, 1ML IVPush ONE (00:30)
[2020-12-22] MEDS: LACTATED RINGERS 1,000 ML IV SCH ×6 (03:30→22:30)
[2020-12-22 03:39] VITALS: BP 98/64
[2020-12-22] MEDS: D5%-LACTATED RINGERS 1,000 ML IV SCH ×3 (04:25→22:30)
[2020-12-22 04:57] LABS: BASOPHILS % (AUTO) 0 % (0-1); EOSINOPHILS % (AUTO) 0 % (1-7); LYMPHOCYTES % (AUTO) 15 % (22-44); MEAN CORPUSCULAR HEMOGLOBIN 29.4 pg (27.0-34.8); MEAN CORPUSCULAR HGB CONC 34.9 g/dL (32.4-35.8); MEAN PLATELET VOLUME 9.1 fL (7.4-10.4); MONOCYTES % (AUTO) 6 % (2-9); NEUTROPHILS % (AUTO) 79 % (42-75); PLATELET COUNT 175 x10^3/uL (130-400); RED BLOOD COUNT 3.66 x10^6/uL (3.82-5.3); RED CELL DISTRIBUTION WIDTH 14.3 % (9.6-15.2)
[2020-12-22 04:58] LABS: MD NO
[2020-12-22] MEDS: IBUPROFEN 600 MG TABLET PO PRN ×3 (06:23→19:19)
[2020-12-22] MEDS: ACETAMINOPHEN 325 MG TABLET PO PRN ×5 (06:24→23:59)
[2020-12-22] MEDS: OXYTOCIN 30U/ 0.9% NaCL 500ML 500 ML IV SCH ×2 (07:30→17:30)
[2020-12-22 08:18] VITALS: BP 109/75
[2020-12-22] MEDS: PRENATAL VIT/IRON/FA 1 EACH TABLET PO SCH (08:31)
[2020-12-22] MEDS: DOCUSATE 100 MG CAPSULE PO PRN ×2 (08:31→19:19)
[2020-12-22] MEDS ORDERED: RHOGAM FROM BLOOD BANK 1 NOTE EA IM/IV ONE (09:00)
[2020-12-22 12:25] VITALS: BP 118/79
[2020-12-22] MEDS ORDERED: IBUP-1222 PO (15:09)
[2020-12-22 16:10] VITALS: BP 115/79
[2020-12-22 19:25] VITALS: BP 111/74
[2020-12-22] MEDS: FENTANYL/BUPIV./NS/PF 250 ML EPIDCONT SCH (19:30)
[2020-12-23] MEDS: OXYTOCIN 30U/ 0.9% NaCL 500ML 500 ML IV SCH (00:44)
[2020-12-23] MEDS: LACTATED RINGERS 1,000 ML IV SCH ×3 (00:44→11:30)
[2020-12-23] MEDS: IBUPROFEN 600 MG TABLET PO PRN ×2 (01:57→08:00)
[2020-12-23] MEDS: ACETAMINOPHEN 325 MG TABLET PO PRN (05:04)
[2020-12-23] MEDS: D5%-LACTATED RINGERS 1,000 ML IV SCH (05:22)
[2020-12-23 07:10] VITALS: BP 119/77
[2020-12-23 07:20] VITALS: BP 111/75
[2020-12-23] MEDS: DOCUSATE 100 MG CAPSULE PO PRN (08:00)
[2020-12-23] MEDS: PRENATAL VIT/IRON/FA 1 EACH TABLET PO SCH (08:01)
== END 2020-12-23 12:45 | disposition home or self-care (01) | DRG 806 ==
LOC: LDIP 22:09 → 2NW 12-21 22:50
PROVIDERS: ADMIT Obstetrics & Gynecology; ATTEND Obstetrics & Gynecology
PROC: 10E0XZZ Delivery of Products of Conception, External Approach (ICD-10-PCS; principal; 2020-12-21)
PROC: 0KQM0ZZ Repair Perineum Muscle, Open Approach (ICD-10-PCS; 2020-12-21)
PROC: 3E0234Z Introduction of Serum, Toxoid and Vaccine into Muscle, Percutaneous Approach (ICD-10-PCS; 2020-12-21)
PROC: 3E0P7VZ Introduction of Hormone into Female Reproductive, Via Natural or Artificial Opening (ICD-10-PCS; 2020-12-21)
PROC: 10907ZC Drainage of Amniotic Fluid, Therapeutic from Products of Conception, Via Natural or Artificial Opening (ICD-10-PCS; 2020-12-21)
PROC: 10H07YZ Insertion of Other Device into Products of Conception, Via Natural or Artificial Opening (ICD-10-PCS; 2020-12-21)
PROC: 3E0R3BZ Introduction of Anesthetic Agent into Spinal Canal, Percutaneous Approach (ICD-10-PCS; 2020-12-21)
PROC: 00HU33Z Insertion of Infusion Device into Spinal Canal, Percutaneous Approach (ICD-10-PCS; 2020-12-21)
DX: O69.81X0 Labor and delivery complicated by cord around neck, without compression, not applicable or unspecified (principal); O99.354 Diseases of the nervous system complicating childbirth; Z37.0 Single live birth; O70.1 Second degree perineal laceration during delivery; O26.893 Other specified pregnancy related conditions, third trimester; O99.62 Diseases of the digestive system complicating childbirth; O99.344 Other mental disorders complicating childbirth; F32.9 Major depressive disorder, single episode, unspecified; K21.9 Gastro-esophageal reflux disease without esophagitis; G43.909 Migraine, unspecified, not intractable, without status migrainosus; Z3A.39 39 weeks gestation of pregnancy; Z67.41 Type O blood, Rh negative; Z88.0 Allergy status to penicillin; Z88.8 Allergy status to other drugs, medicaments and biological substances; Z91.018 Allergy to other foods; Z91.040 Latex allergy status; Z90.49 Acquired absence of other specified parts of digestive tract
CPT/HCPCS: 36415; 85025; 85461; 86592; 86850; 86900; G0378; J2790; J1200; J2590; J7120

== ENCOUNTER 2021-01-02 16:06 | Emergency (ER) | payer OTHER ==
[~2021-01-02] VITALS: Ht 175.3 cm; Wt 99.7 kg
--- NOTE | 2021-01-02 16:24 | NUR ---
PT S/P INDUCED VAGINAL DELIVERY AT 39WKS. PT RPTS INTERMITTANT VAGINAL BLEEDING "BRIGHT RED, NO CLOTS, MASSIVE AMTS" DISCRIBES BLEEDING THAT WAS VERY LIGHT BUT OVER LAST FEW DAYS HAS BEEN VERY HEAVY. TODAY SHE HAD A THICK WHITE DISCHARGE BUT AFTER DRIVING SHE FELT THE BLEEDING AGAIN AND "HAD TO EWING TO THE BATHROOM AND IT HAD SEEPED ALL THE WAY THROUGH MY CLOTHES" DR BENITO AT BEDSIDE. PT ASSESSMENT REVIEWED AND POC DISCUSSED. QUESTIONS ANSWERED. Addendum: 01/02/21 at 1628 by SURY DATE OF DELIVERY 12/21/2020
[2021-01-02 16:47] LABS: BASOPHILS % (AUTO) 1 % (0-1); EOSINOPHILS % (AUTO) 1 % (1-7); LYMPHOCYTES % (AUTO) 18 % (22-44); MEAN CORPUSCULAR HEMOGLOBIN 27.9 pg (27.0-34.8); MEAN CORPUSCULAR HGB CONC 33.2 g/dL (32.4-35.8); MEAN PLATELET VOLUME 7.7 fL (7.4-10.4); MONOCYTES % (AUTO) 5 % (2-9); NEUTROPHILS % (AUTO) 76 % (42-75); PLATELET COUNT 237 x10^3/uL (130-400); RED BLOOD COUNT 4.43 x10^6/uL (3.82-5.3); RED CELL DISTRIBUTION WIDTH 13.8 % (9.6-15.2)
[2021-01-02 16:48] LABS: MD NO
[2021-01-02 16:59] LABS: ALANINE AMINOTRANSFERASE 21 U/L (12-78); ALBUMIN 3.4 g/dL (3.4-5.0); ANION GAP 5 mmol/L (5-15); CALCIUM 8.9 mg/dL (8.5-10.1); CHLORIDE 110 mmol/L (98-107); CREATININE 0.69 mg/dL (0.55-1.02)
[2021-01-02 17:02] LABS: ALKALINE PHOSPHATASE 135 U/L (45-117); BILIRUBIN,TOTAL 0.3 mg/dL (0.2-1.0); TOTAL PROTEIN 7.1 g/dL (6.4-8.2)
--- NOTE | 2021-01-02 17:33 | NUR ---
DR BENITO AT BEDSIDE, PELVIC EXAM COMPLETED WITH THIS RN PRESENT. PT TOLLERATED WELL.
--- NOTE | 2021-01-02 18:18 | NUR ---
VSS, NAD NOTED. US RESULTS PENDING
[2021-01-02] MEDS ORDERED: MISOPROSTOL 200 MCG TABLET PR ONE (19:30)
--- NOTE | 2021-01-02 20:16 | NUR ---
PT MED NOTED. SPOKE WITH L&D RN TO VERIFY DOSING AND BREAST FEEDING PRECAUTIONS. PER L&D NO BREAST FEEDING PRECAUTIONS NEEDED. PT TO BE OBSERVED FOR 1HR POST ADMIN. SPINACH SALAD FROM [employer] CART PROVIDED TO PT.
[2021-01-02 20:58] VITALS: BP 116/73
--- NOTE | 2021-01-02 20:59 | NUR ---
Patient/Caregiver given discharge instructions and they have confirmed that they understand the instructions. Patient ambulatory with steady gait.
== END 2021-01-02 21:00 | disposition home or self-care (01) ==
LOC: ED 19:45
DX: O72.1 Other immediate postpartum hemorrhage (principal)
CPT/HCPCS: 36415; 76830; 80053; 85025; 99285

== ENCOUNTER 2021-01-04 16:10 | Day surgery (SDC) | payer OTHER ==
[~2021-01-04] VITALS: Ht 175.3 cm; Wt 99.6 kg
[~2021-01-04 16:10] MED LIST changes: +CEFAZOLIN 1,000 MG ONE; +OXYC1TAB12 PO; -OXYC1TAB14 PO; +PROPOFOL 10 MG/ML, 20ML ONE; +ROCURONIUM 10 MG/ML,10ML ONE; +SUCCINYLCHOLINE 20 MG/ML, 10ML ONE
[2021-01-04] MEDS ORDERED: SODIUM CHLORIDE 0.9% 1,000ML IVBOLUS ONE (16:30)
[2021-01-04] MEDS ORDERED: SODIUM CHLORIDE FLUSH 10ML SYR IVF ONE (16:30)
--- NOTE | 2021-01-04 16:50 | NUR ---
late entry for 1649: pt presents to ED at direction of her OB. pt states she has had abnormal bleeding, intermittent heavy bleeding for last few days, seen today in OBs office, told to go to ED if bleeding resumes. pt had one episode vag bleed "gush" this pm after seeing OB, so she presented to ED. pt has scant vag bleeding at this time. pt attatched to all monitors, as she reports dizziness since onset of bleeding. nsr on cardiac nurse practitioner with no ectopy. pt a&o, resps even and unlabored, pauln.
--- NOTE | 2021-01-04 17:03 | NUR ---
CHARISSE WETEZL AT BEDSIDE. PIV PLACED, PT A&O, RESPS EVEN AND UNLABORED. ALL MONITORS IN PLACE. ALL MONITORS IN PLACE. CALL LIGHT IN REACH. NS BOLUS INFUSING.
[2021-01-04 17:32] LABS: ALBUMIN 3.3 g/dL (3.4-5.0); ANION GAP 6 mmol/L (5-15); CALCIUM 8.7 mg/dL (8.5-10.1); CHLORIDE 112 mmol/L (98-107); CREATININE 0.58 mg/dL (0.55-1.02)
[2021-01-04 17:54] LABS: BASOPHILS % (AUTO) 0 % (0-1); EOSINOPHILS % (AUTO) 1 % (1-7); LYMPHOCYTES % (AUTO) 26 % (22-44); MEAN CORPUSCULAR HEMOGLOBIN 27.5 pg (27.0-34.8); MEAN CORPUSCULAR HGB CONC 32.6 g/dL (32.4-35.8); MEAN PLATELET VOLUME 8.5 fL (7.4-10.4); MONOCYTES % (AUTO) 5 % (2-9); NEUTROPHILS % (AUTO) 67 % (42-75); PLATELET COUNT 215 x10^3/uL (130-400); RED CELL DISTRIBUTION WIDTH 14.2 % (9.6-15.2)
[2021-01-04] MEDS ORDERED: CHOL10003 PO (18:03)
[2021-01-04] MEDS ORDERED: SENN1TAB67 PO (18:03)
--- NOTE | 2021-01-04 18:15 | NUR ---
PT PROVIDED WITH HOSPITAL BREAST PUMP, PUMPING IN ROOM. 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
--- NOTE | 2021-01-04 18:51 | NUR ---
TP RN: COVID NEGATIVE AT [facility] TODAY.
--- NOTE | 2021-01-04 18:52 | NUR ---
REPORT GIVEN TO PATRICIA VITALE IN OR. ALL QUESTIONS ANSWERED. AWAITING PT TRANSPORT TO OR.
[2021-01-04 19:00] VITALS: BP 114/72
[2021-01-04] MEDS: FENTANYL PF 100 MCG/2ML IV PRN ×2 (20:20→20:40)
[2021-01-04] MEDS ORDERED: METHYLERGONOVINE 0.2 MG/ML IM ONE ×2 (20:20→20:30)
[2021-01-04] MEDS ORDERED: MISOPROSTOL 200 MCG TABLET PR ONE (20:20)
[2021-01-04] MEDS ORDERED: ACETAMINOPHEN 325 MG TABLET PO PRN (20:30)
[2021-01-04] MEDS ORDERED: PROMETHAZINE 25 MG/ML, 1ML IVPush PRN (20:30)
[2021-01-04] MEDS ORDERED: MIDAZOLAM 1 MG/ML, 2ML IV PRN (20:30)
[2021-01-04] MEDS ORDERED: HYDROmorphone 1 MG/ML, 1ML INJ IVPush PRN (20:30)
[2021-01-04] MEDS ORDERED: MISOPROSTOL 200 MCG TABLET ONE (20:30)
[2021-01-04] MEDS ORDERED: DIPHENHYDRAMINE 50 MG/ML, 1ML IVPush PRN (20:30)
[2021-01-04] MEDS ORDERED: MEPERIDINE/PF 25MG/0.5ML IVPush PRN (20:30)
[2021-01-04] MEDS ORDERED: ONDANSETRON 2MG/ML, 2ML IVPush PRN (20:30)
[2021-01-04] MEDS ORDERED: OXYcodone 5 MG/5 ML ORAL.SOL UDC PO PRN (20:30)
[2021-01-04] MEDS ORDERED: IBUPROFEN 600 MG TABLET ONE (20:43)
[2021-01-04] MEDS ORDERED: IBUPROFEN 200 MG TABLET PO ONE (21:00)
== END 2021-01-04 22:40 | disposition home or self-care (01) ==
LOC: OUT 18:33 → ED 18:33 → UNDOADMIN 19:11 → EDIP 19:11 → ED 22:40 → OUT 22:40
PROVIDERS: ATTEND Obstetrics & Gynecology
DX: O72.2 Delayed and secondary postpartum hemorrhage (principal); N89.7 Hematocolpos; M79.7 Fibromyalgia; F12.90 Cannabis use, unspecified, uncomplicated; F32.9 Major depressive disorder, single episode, unspecified; G43.909 Migraine, unspecified, not intractable, without status migrainosus; Z37.0 Single live birth; Z20.822 Contact with and (suspected) exposure to COVID-19; Z79.899 Other long term (current) drug therapy; Z91.040 Latex allergy status; Z90.49 Acquired absence of other specified parts of digestive tract; Z91.018 Allergy to other foods; Z88.8 Allergy status to other drugs, medicaments and biological substances; Z82.49 Family history of ischemic heart disease and other diseases of the circulatory system
CPT/HCPCS: 36415; 59160; 76830; 80048; 82040; 84702; 85025; 86850; 86870; 86900; 86922; 88305; 93005; 96361; 96372; 96374; 99285; J0330; J0690; J2210; J2704; J3010; J7030; U0003; 86923; J2590

== ENCOUNTER 2021-01-12 17:39 | Inpatient (IN) | payer OTHER ==
[~2021-01-12] VITALS: Ht 175.3 cm; Wt 102.2 kg
[~2021-01-12 17:39] MED LIST changes: -CEFAZOLIN 1,000 MG ONE; +CHOL10003 PO; -PROPOFOL 10 MG/ML, 20ML ONE; -ROCURONIUM 10 MG/ML,10ML ONE; +SENN1TAB67 PO; -SUCCINYLCHOLINE 20 MG/ML, 10ML ONE
--- NOTE | 2021-01-12 18:44 | NUR ---
RECEIVED REPORT FROM KIMBERLEY GOMEZ. ASSUMING CARE AT THIS TIME.
[2021-01-12] MEDS ORDERED: MORPHINE SULFATE 4 MG/ML, 1ML ONE (19:21)
[2021-01-12] MEDS ORDERED: morphine SULFATE 10 MG/ML, 1ML IVPush ONE (19:30)
[2021-01-12] MEDS ORDERED: ONDANSETRON 2MG/ML, 2ML IV PRN (19:30)
[2021-01-12] MEDS ORDERED: OXYcodone IR 5MG TABLET PO PRN (19:30)
[2021-01-12] MEDS ORDERED: DOCUSATE 100 MG CAPSULE PO PRN (19:30)
[2021-01-12] MEDS ORDERED: MISOPROSTOL 200 MCG TABLET PR PRN (19:30)
[2021-01-12] MEDS ORDERED: IBUPROFEN 800 MG TABLET PO PRN (19:30)
--- NOTE | 2021-01-12 19:30 | NUR ---
RECEIVED VERBAL ORDER FROM DR BENITO FOR 1L NS IV BOLUS ONCE, FOR BP 92/58. IVF STARTED PER ORDER.
--- NOTE | 2021-01-12 19:39 | NUR ---
PAIN MEDS ADMIN PER DEC. PT PLACED ON OXYGEN FOR SAFETY. CALL LIGHT IN REACH.
[2021-01-12] MEDS ORDERED: SODIUM CHLORIDE 0.9% 1,000ML IVBOLUS ONE (20:00)
[2021-01-12 20:31] VITALS: BP 95/57
[2021-01-12] MEDS: OXYcodone 5 MG/5 ML ORAL.SOL UDC PO PRN (22:06)
[2021-01-13] MEDS ORDERED: D5%-LACTATED RINGERS 1,000 ML IV SCH
[2021-01-13] MEDS: ACETAMINOPHEN 325 MG TABLET PO PRN ×3 (00:28→22:54)
[2021-01-13] MEDS: OXYcodone 5 MG/5 ML ORAL.SOL UDC PO PRN ×2 (02:58→07:20)
[2021-01-13] MEDS ORDERED: LACTATED RINGERS 1,000 ML IV SCH (09:30)
[2021-01-13 09:45] LABS: BASOPHILS % (AUTO) 0 % (0-1); EOSINOPHILS % (AUTO) 2 % (1-7); LYMPHOCYTES % (AUTO) 31 % (22-44); MEAN CORPUSCULAR HEMOGLOBIN 27.7 pg (27.0-34.8); MEAN CORPUSCULAR HGB CONC 32.7 g/dL (32.4-35.8); MEAN PLATELET VOLUME 8.1 fL (7.4-10.4); MONOCYTES % (AUTO) 7 % (2-9); NEUTROPHILS % (AUTO) 60 % (42-75); PLATELET COUNT 220 x10^3/uL (130-400); RED BLOOD COUNT 3.18 x10^6/uL (3.82-5.3); RED CELL DISTRIBUTION WIDTH 14.4 % (9.6-15.2)
[2021-01-13 10:00] VITALS: BP 91/51
[2021-01-13] MEDS: MORPHINE SULFATE 4 MG/ML, 1ML IVPush PRN ×2 (10:06→16:27)
[2021-01-13] MEDS: KETOROLAC 30 MG/1 ML IV SCH ×2 (13:30→18:38)
[2021-01-13] MEDS ORDERED: OXYcodone 5 MG/5 ML ORAL.SOL UDC ONE (14:26)
[2021-01-13] MEDS ORDERED: FENTANYL PF 100 MCG/2ML ONE (14:26)
[2021-01-13] MEDS: ACETAMINOPHEN 325 MG TABLET PO SCH ×3 (14:30→21:18)
[2021-01-13] MEDS ORDERED: OXYcodone IR 5MG TABLET PO PRN ×2 (14:30)
[2021-01-13] MEDS ORDERED: ONDANSETRON 2MG/ML, 2ML IV PRN (14:30)
[2021-01-13] MEDS ORDERED: BISACODYL 10 MG SUPP PR PRN (14:30)
[2021-01-13] MEDS ORDERED: HYDROmorphone 1 MG/ML, 1ML INJ IVPush PRN (14:30)
[2021-01-13] MEDS ORDERED: ONDANSETRON 2MG/ML, 2ML IVPush PRN (14:30)
[2021-01-13] MEDS ORDERED: ACETAMINOPHEN 325 MG TABLET PO PRN (14:30)
[2021-01-13] MEDS ORDERED: hydrALAzine 20 MG/ML, 1ML IV PRN (14:30)
[2021-01-13] MEDS ORDERED: MEPERIDINE/PF 25MG/0.5ML IVPush PRN (14:30)
[2021-01-13] MEDS ORDERED: GLYCERIN ADULT SUPP PR PRN (14:30)
[2021-01-13] MEDS: LACTATED RINGERS 1,000 ML IV SCH ×3 (14:30→22:30)
[2021-01-13] MEDS ORDERED: OXYcodone 5 MG/5 ML ORAL.SOL UDC PO PRN ×2 (14:30→19:30)
[2021-01-13] MEDS: FENTANYL PF 100 MCG/2ML IV PRN ×2 (14:30→14:57)
[2021-01-13] MEDS ORDERED: PROMETHAZINE 25 MG/ML, 1ML IVPush PRN (14:30)
[2021-01-13] MEDS ORDERED: METOCLOPRAMIDE 5 MG/ML, 2ML IV PRN (14:30)
[2021-01-13] MEDS ORDERED: LABETALOL 5MG/ML, 20ML IV PRN (14:30)
[2021-01-13] MEDS ORDERED: SIMETHICONE 80 MG CHEW TAB PO PRN (14:30)
[2021-01-13] MEDS ORDERED: MEPERIDINE/PF 25MG/ML,1ML ONE (14:36)
[2021-01-13] MEDS ORDERED: PROMETHAZINE 25 MG/ML, 1ML ONE (14:38)
[2021-01-13] MEDS ORDERED: ACETAMINOPHEN 650 MG/20.3 ML UDC ONE (14:46)
[2021-01-13] MEDS ORDERED: MIDAZOLAM 1 MG/ML, 2ML ONE (14:49)
[2021-01-13 15:00] VITALS: BP 114/57
[2021-01-13] MEDS ORDERED: MEPERIDINE/PF 50 MG/ML IM PRN (15:00)
[2021-01-13] MEDS ORDERED: MIDAZOLAM 1 MG/ML, 2ML IVPush ONE (15:30)
[2021-01-13] MEDS ORDERED: MIDAZOLAM 1 MG/ML, 2ML IVPush PRN (15:30)
[2021-01-13] MEDS ORDERED: DEXAMETHASONE 4 MG/ML, 1ML ONE (16:51)
[2021-01-13] MEDS ORDERED: ROCURONIUM 10MG/ML,5ML ONE (16:51)
[2021-01-13] MEDS ORDERED: CEFAZOLIN 1,000 MG ONE (16:51)
[2021-01-13] MEDS ORDERED: KETOROLAC 30 MG/1 ML ONE (16:51)
[2021-01-13] MEDS ORDERED: PROPOFOL 10 MG/ML, 20ML ONE (16:51)
[2021-01-13] MEDS ORDERED: ONDANSETRON 2MG/ML, 2ML ONE (16:51)
[2021-01-13] MEDS: morphine SULFATE 10 MG/ML, 1ML IM PRN ×2 (18:16→21:25)
[2021-01-13 18:17] VITALS: BP 114/76
[2021-01-13 20:00] VITALS: BP 109/72
[2021-01-13] MEDS: DOCUSATE 100 MG CAPSULE PO PRN (22:54)
[2021-01-14] MEDS: LACTATED RINGERS 1,000 ML IV SCH ×6 (00:30→22:30)
[2021-01-14] MEDS: KETOROLAC 30 MG/1 ML IV SCH ×2 (00:56→07:27)
[2021-01-14] MEDS: morphine SULFATE 10 MG/ML, 1ML IM PRN ×3 (00:57→07:29)
[2021-01-14 01:01] VITALS: BP 98/58
[2021-01-14] MEDS: ACETAMINOPHEN 325 MG TABLET PO SCH ×5 (01:36→21:30)
[2021-01-14] MEDS: ACETAMINOPHEN 325 MG TABLET PO PRN ×3 (04:16→18:13)
[2021-01-14 07:45] VITALS: BP 97/61
[2021-01-14 10:19] LABS: BASOPHILS % (AUTO) 0 % (0-1); EOSINOPHILS % (AUTO) 0 % (1-7); LYMPHOCYTES % (AUTO) 17 % (22-44); MEAN CORPUSCULAR HEMOGLOBIN 27.8 pg (27.0-34.8); MEAN CORPUSCULAR HGB CONC 32.8 g/dL (32.4-35.8); MEAN PLATELET VOLUME 8.2 fL (7.4-10.4); MONOCYTES % (AUTO) 9 % (2-9); NEUTROPHILS % (AUTO) 74 % (42-75); PLATELET COUNT 295 x10^3/uL (130-400)
[2021-01-14] MEDS: PRENATAL VIT/IRON/FA 1 EACH TABLET PO SCH (10:29)
[2021-01-14] MEDS: DOCUSATE 100 MG CAPSULE PO PRN ×2 (10:29→20:12)
[2021-01-14] MEDS: OXYcodone 5 MG/5 ML ORAL.SOL UDC PO PRN ×3 (10:32→18:55)
[2021-01-14] MEDS ORDERED: IBUPROFEN 600 MG TABLET ONE (13:19)
[2021-01-14 13:20] VITALS: BP 90/55
[2021-01-14] MEDS: IBUPROFEN 600 MG TABLET PO PRN ×2 (13:29→20:12)
[2021-01-14 15:45] VITALS: BP 97/55
[2021-01-14] MEDS ORDERED: GABAPENTIN 300 MG CAPSULE PO SCH (16:00)
[2021-01-14 18:00] VITALS: BP 112/67
[2021-01-14 20:00] VITALS: BP 104/68
[2021-01-15] MEDS: ACETAMINOPHEN 325 MG TABLET PO PRN ×3 (00:09→08:23)
[2021-01-15] MEDS: OXYcodone 5 MG/5 ML ORAL.SOL UDC PO PRN ×3 (00:09→08:24)
[2021-01-15] MEDS: ACETAMINOPHEN 325 MG TABLET PO SCH ×2 (01:30→08:18)
[2021-01-15 02:45] VITALS: BP 102/69
[2021-01-15] MEDS: IBUPROFEN 600 MG TABLET PO PRN ×2 (02:57→09:04)
[2021-01-15] MEDS: LACTATED RINGERS 1,000 ML IV SCH ×2 (06:30)
[2021-01-15] MEDS ORDERED: OXYC5SOL8 PO (07:39)
[2021-01-15] MEDS ORDERED: DOCU-131 PO (07:39)
[2021-01-15] MEDS ORDERED: ACET325T26 PO (07:39)
[2021-01-15] MEDS ORDERED: IBUP-1222 PO (07:39)
[2021-01-15 08:15] VITALS: BP 109/69
[2021-01-15] MEDS: PRENATAL VIT/IRON/FA 1 EACH TABLET PO SCH (08:23)
[2021-01-15] MEDS: DOCUSATE 100 MG CAPSULE PO PRN (08:23)
[2021-01-15] MEDS ORDERED: IBUPROFEN 600 MG TABLET PO PRN (14:30)
== END 2021-01-15 10:50 | disposition home or self-care (01) | DRG 769 ==
LOC: ED 19:13 → EDIP 19:44 → 2NE 19:53 → 2NW 01-13 15:20 → DCLOUNGE 01-15 10:46
PROVIDERS: ADMIT Student in an Organized Health Care Education/Training Program; ATTEND Obstetrics & Gynecology
PROC: 0UT90ZZ Resection of Uterus, Open Approach (ICD-10-PCS; 2021-01-13)
PROC: 0UT70ZZ Resection of Bilateral Fallopian Tubes, Open Approach (ICD-10-PCS; principal; 2021-01-13 12:15)
DX: O72.2 Delayed and secondary postpartum hemorrhage (principal); Z20.822 Contact with and (suspected) exposure to COVID-19; Z86.16 Personal history of COVID-19; M79.7 Fibromyalgia; O90.81 Anemia of the puerperium; D64.9 Anemia, unspecified; N85.8 Other specified noninflammatory disorders of uterus; Z88.0 Allergy status to penicillin; Z88.8 Allergy status to other drugs, medicaments and biological substances; Z91.040 Latex allergy status; Z91.011 Allergy to milk products
CPT/HCPCS: 36415; 96374; 99285; J7121; 76830; 85014; 85018; 85025; 86850; 86870; 86900; 86922; 86923; 87635; 88307; G0378; J0690; J1100; J1885; J2175; J2250; J2405; J2550; J2704; J3010; J2270; J7030; J7120